=== PATIENT | female | born 1975 | race Caucasian/White ===

== ENCOUNTER 2020-01-25 18:11 | Emergency (ER) | payer BC ==
[2020-01-25 18:36] VITALS: RESP 18; TEMP 98.8
[2020-01-25] MEDS ORDERED: HYDROmorphone 1 MG/ML 1 ML SYRINGE IVP STA ×2 (18:42→20:16)
[2020-01-25] MEDS ORDERED: ONDANSETRON 4 MG/2 ML VIAL IVP STA (18:42)
[2020-01-25] MEDS ORDERED: LORazepam 2 MG/ML INJ IV STA (19:45)
--- NOTE | 2020-01-25 19:45 | XR ---
EXAMINATION TYPE: XR shoulder complete RT DATE OF EXAM: 01/25/2020 COMPARISON: NONE HISTORY: Pain TECHNIQUE: 3 views FINDINGS: There is nondisplaced chip fracture of the greater tuberosity of the humerus. There is no d islocation. Scapula is intact. IMPRESSION: Nondisplaced greater tuberosity chip fracture.
--- NOTE | 2020-01-25 19:46 | XR ---
EXAMINATION TYPE: XR humerus RT DATE OF EXAM: 01/25/2020 COMPARISON: NONE HISTORY: Pain TECHNIQUE: 2 views FINDINGS: Elbow joint appears intact. No displaced fracture seen. There is no dislocation at the shou lder joint. IMPRESSION: No displaced fracture seen.
--- NOTE | 2020-01-25 19:47 | XR ---
EXAMINATION TYPE: XR wrist complete RT DATE OF EXAM: 01/25/2020 COMPARISON: NONE HISTORY: Pain TECHNIQUE: 4 views FINDINGS: I see no fracture nor dislocation. Joint spaces are normal. Metacarpals are intact. There a re no erosions. IMPRESSION: Negative right wrist exam.
[2020-01-25 20:10] VITALS: BP 171/86; PULSE 73
--- NOTE | 2020-01-25 20:38 | ED ---
Fall HPI - General Chief Complaint: Fall Stated Complaint: Fall, R Arm injury Time Seen by Provider: 01/25/20 18:15 Source: patient Mode of arrival: ambulatory - History of Present Illness Initial Comments: Patient is a 44 year old female with past medical history of alcohol abuse who presents to the emergency department with reported right shoulder pain. She states that she was walking down the stairs with a roll of carpet when she tripped and fell onto her right shoulder. He denies hitting her head or losing consciousness. He is complaining of pain in her right shoulder and wrist. Patient is right-hand dominant. Denies any numbness or tingling into her hand. She was given mcgs of fentanyl prior to hospital arrival. Does arrive in admits that she is an alcoholic. States her last drink was last night. No other alleviating, precipitating or modifying factors - Related Data Home Medications Medication Instructions Recorded Confirmed Albuterol Inhaler [Ventolin Hfa 2 puff INHALATION RT-TID PRN 01/25/20 01/25/20 Inhaler] Escitalopram [Lexapro] 10 mg PO DAILY 01/25/20 01/25/20 Lansoprazole [Prevacid] 30 mg PO DAILY 01/25/20 01/25/20 Metoprolol Succinate [Toprol XL] 100 mg PO BID 01/25/20 01/25/20 Previous Rx's Medication Instructions Recorded HYDROcodone/APAP 7.5-325MG [[place] 1 tab PO Q4HR PRN 3 Days #18 tab 01/25/20 7.5-325] LORazepam [Ativan] 0.5 mg PO TID 3 Days #9 tab 01/25/20 Allergies Allergy/AdvReac Type Severity Reaction Status Date / Time Iodinated Contrast Media Allergy Rash/Hives Verified 01/25/20 19:23 Review of Systems ROS Statement: Those systems with pertinent positive or pertinent negative responses have been documented in the HPI. ROS Other: All systems not noted in ROS Statement are negative. 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 Absent: scleral icterus, conjunctival injection, periorbital swelling ENT exam: Present: normal exam, mucous membranes moist Neck exam: Present: normal inspection. Absent: tenderness, meningismus, lymphadenopathy Respiratory exam: Present: normal lung sounds bilaterally. Absent: respiratory distress, wheezes, rales, rhonchi, stridor Cardiovascular Exam: Present: regular rate, normal rhythm, normal heart sounds. Absent: systolic murmur, diastolic murmur, rubs, gallop, clicks GI/Abdominal exam: Present: soft, normal bowel sounds. Absent: distended, tenderness, guarding, rebound, rigid Extremities exam: Present: tenderness (tenderness to palpation at the right humeral head. Difficulty with abduction and flexion due to pain. Equal exploitation analyst strength. Intact wrist extension and flexion. Tenderness to palpation of distal radius and ulna. ), normal capillary refill. Absent: pedal edema, joint swelling, calf tenderness Back exam: Present: normal inspection Neurological exam: Present: alert, oriented X3, CN II-XII intact Psychiatric exam: Present: normal affect, normal mood Skin exam: Present: warm, dry, intact, normal color. Absent: rash Course Vital Signs 01/25/20 01/25/20 18:14 20:09 Temperature 98.8 F Pulse Rate 74 73 Respiratory 18 18 Rate Blood Pressure 178/109 171/86 O2 Sat by Pulse 96 98 Oximetry Procedures - Orthopedic Splinting/Casting Injury #1 Side: right Upper Extremity Injury Location: wrist Upper Extremity Immobilizer: thumb spica, synthetic pre-padded splint Medical Decision Making - Medical Decision Making Upon arrival patient is placed in room 18. A thorough physical exam was performed. First IV is established. Patient was given additional pain medications and nausea medications. X-rays performed of the patient's right shoulder and right wrist. Imaging does reveal a chip fracture of the patient's greater tuberosity. Patient placed in a sling. Wrist is placed in a thumb spica splint. Patient is given orthopedic follow-up. Patient is concerned about being on Gustavus and unable drink alcohol. I did give her a few tablets of Ativan. She is instructed that she must separate the Gustavus and Ativan. Significant other is at bedside and understands this. They're to be by approximately 3 hours time. If the pain medications or and are not needed the patient should not take them. Do not mix either with alcohol. The patient has worsening withdrawal symptoms she should return to the emergency room. She understands this. Patient was discharged in stable condition Disposition Clinical Impression: Fall, Right humeral fracture, Right wrist pain Disposition: ADMITTED IP TO THIS [facility] Condition: Stable Instructions (If sedation given, give patient instructions): Proximal Humerus Fracture (ED) Additional Instructions: Follow-up with orthopedic doctor. Keep your arm in the wrist splint. Do not get it wet. Rest, ice and elevate your wrist. Wear the sling for comfort. Separate taking the Ativan and Gustavus. Return to the ED for any new or worsening symptoms. Prescriptions: LORazepam [Ativan] 0.5 mg PO TID 3 Days #9 tab HYDROcodone/APAP 7.5-325MG [G[place]av[place] 7.5-325] 1 tab PO Q4HR PRN 3 Days #18 tab PRN Reason: Pain Is patient prescribed a controlled substance at d/c from ED?: Yes When asked, does pt state using other controlled substances?: No If prescribed controlled substance>3 days was MAPS reviewed?: Prescribed <3 Days If opioid is for acute pain is fill amount 7 days or less?: Yes If Rx opioid, was Start Talking consent form obtained?: Yes Referrals: Nonstaff,Physician [Primary Care Provider] - 1-2 days Joon Francisco DO [Medical Doctor] - 1-2 days Time of Disposition: 20:35
== END 2020-01-25 21:00 | disposition other institution (70) ==
LOC: EC 18:11
DX: S42.251A Displaced fracture of greater tuberosity of right humerus, initial encounter for closed fracture (principal); M25.531 Pain in right wrist; I10 Essential (primary) hypertension; K21.9 Gastro-esophageal reflux disease without esophagitis; F32.9 Major depressive disorder, single episode, unspecified; F17.200 Nicotine dependence, unspecified, uncomplicated; Z79.899 Other long term (current) drug therapy; Z91.041 Radiographic dye allergy status; W10.9XXA Fall (on) (from) unspecified stairs and steps, initial encounter; Y93.01 Activity, walking, marching and hiking
CPT/HCPCS: 99284; 29125; 96374; 96375 ×2; 73030; 73060; 73110; J2060; J2405; J1170

== ENCOUNTER 2020-04-17 14:23 | Emergency (ER) | payer OTHER ==
[2020-04-17 14:29] VITALS: BP 180/91; PULSE 77; RESP 18; TEMP 97.9
[2020-04-17] MEDS ORDERED: LIDOCAINE 1%-EPI 1:100,000 20 ML VIAL SQ STA (14:38)
--- NOTE | 2020-04-17 14:45 | ED ---
Skin/Abscess/FB HPI - General Chief complaint: Skin/Abscess/Foreign Body Stated complaint: Abscess/Rash Time Seen by Provider: 04/17/20 14:33 Source: patient Mode of arrival: ambulatory Limitations: no limitations - History of Present Illness Initial comments: 44-year-old female presenting to emergency Department with a chief complaint of an abscess in the forehead. 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 States she typically is treated with oral antibiotics and has been seen at other emergency departments. Patient states now she has developed a small lesion on her forehead the past 3 days. Patient reports applying topical antibiotic ointment and peroxide with no significant improvement in symptoms. She denies any significant erythema or swelling. Denies any night sweats fevers or chills. - Related Data Home Medications Medication Instructions Recorded Confirmed Albuterol Inhaler [Ventolin Hfa 2 puff INHALATION RT-TID PRN 01/25/20 01/25/20 Inhaler] Escitalopram [Lexapro] 10 mg PO DAILY 01/25/20 01/25/20 Lansoprazole [Prevacid] 30 mg PO DAILY 01/25/20 01/25/20 Metoprolol Succinate [Toprol XL] 100 mg PO BID 01/25/20 01/25/20 Previous Rx's Medication Instructions Recorded HYDROcodone/APAP 7.5-325MG [[place] 1 tab PO Q4HR PRN 3 Days #18 tab 01/25/20 7.5-325] LORazepam [Ativan] 0.5 mg PO TID 3 Days #9 tab 01/25/20 Sulfamethox-Tmp 800-160Mg [Bactrim 1 each PO Q12HR #20 tab 04/17/20 Ds] Allergies Allergy/AdvReac Type Severity Reaction Status Date / Time Iodinated Contrast Media Allergy Rash/Hives Verified 04/17/20 14:27 Review of Systems ROS Statement: Those systems with pertinent positive or pertinent negative responses have been documented in the HPI. ROS Other: All systems not noted in ROS Statement are negative. 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 Absent: normal inspection (Small lesion measuring approximately 5 mm and indurated. No surrounding cellulitic skin changes. It is tender to touch.) Eye exam: Present: normal appearance, PERRL, EOMI Pupils: Present: normal accommodation ENT exam: Present: normal exam, normal oropharynx, mucous membranes moist, TM's normal bilaterally, normal external ear exam Neck exam: Present: normal inspection, full ROM. Absent: tenderness Respiratory exam: Present: normal lung sounds bilaterally. Absent: respiratory distress, wheezes, rales Cardiovascular Exam: Present: regular rate, normal rhythm, normal heart sounds Extremities exam: Present: normal inspection, full ROM, normal capillary refill. Absent: tenderness, pedal edema, joint swelling Back exam: Present: normal inspection, full ROM. Absent: tenderness, CVA tenderness (R), CVA tenderness (L) Neurological exam: Present: alert, oriented X3, normal gait Psychiatric exam: Present: normal affect, normal mood Skin exam: Present: warm, dry, intact, normal color Course Vital Signs 04/17/20 14:25 Temperature 97.9 F Pulse Rate 77 Respiratory 18 Rate Blood Pressure 180/91 O2 Sat by Pulse 100 Oximetry Medical Decision Making - Medical Decision Making 44 red female presenting to emergency Department with a chief complaint of an abscess on the forehead. On physical examination, patient has a small lesion on the forehead measuring about 5 mm and it is indurated. No overlying cellulitic skin changes. It is tender to touch. No incision and drainage will be performed at this time. She will be started on Bactrim which always works for her according to the patient. We'll cover for MRSA. Return parameters thoroughly discussed the patient is an ascending agreeable. Case discussed with physician. Disposition Clinical Impression: Abscess Disposition: HOME SELF-CARE Condition: Stable Instructions (If sedation given, give patient instructions): Abscess (ED) Additional Instructions: Take prescribed medication and apply warm compresses. Follow-up with primary care physician. Prescriptions: Sulfamethox-Tmp 800-160Mg [Bactrim Ds] 1 each PO Q12HR #20 tab Is patient prescribed a controlled substance at d/c from ED?: No Referrals: Nonstaff,Physician [Primary Care Provider] - 1-2 days Time of Disposition: 14:58
[2020-04-17] MEDS ORDERED: SULFAMETHOX-TMP 800-160MG 1 EACH TAB PO STA (14:54)
== END 2020-04-17 15:20 | disposition home or self-care (01) ==
LOC: EC 14:23
DX: L02.01 Cutaneous abscess of face (principal); I10 Essential (primary) hypertension; K21.9 Gastro-esophageal reflux disease without esophagitis; F32.9 Major depressive disorder, single episode, unspecified; F17.200 Nicotine dependence, unspecified, uncomplicated; Z79.899 Other long term (current) drug therapy; Z91.041 Radiographic dye allergy status; Z86.14 Personal history of Methicillin resistant Staphylococcus aureus infection
CPT/HCPCS: 99283

== ENCOUNTER 2020-05-19 11:57 | Emergency (ER) | payer OTHER ==
[2020-05-19 12:07] VITALS: RESP 18; TEMP 98.6
--- NOTE | 2020-05-19 12:36 | ED ---
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 patient states that she has had pain in her hands as well as her feet for quite some time. Patient states that she has a bump on her left hand. Patient states that what brought her into the emergency department today however was her bilateral feet pain she's nose that they appear swollen. Child states the pain is up to her thighs. Patient states she woke up this morning and has slight right shoulder pain she states she has had previous injury to this shoulder but states it hurts when she takes a deep breath. Patient denies hemoptysis unilateral leg swelling she denies chest pressure jaw pain. Patient denies cough, fevers. Patient denies additional complaints. (Gris Benton) - Related Data Home Medications Medication Instructions Recorded Confirmed Escitalopram [Lexapro] 10 mg PO DAILY 01/25/20 05/19/20 Lansoprazole [Prevacid] 30 mg PO DAILY 01/25/20 05/19/20 Metoprolol Succinate [Toprol XL] 100 mg PO BID 01/25/20 05/19/20 Allergies Allergy/AdvReac Type Severity Reaction Status Date / Time Iodinated Contrast Media Allergy Rash/Hives Verified 05/19/20 12:47 Review of Systems ROS Other: All systems not noted in ROS Statement are negative. <Gris Benton - Last Filed: 05/19/20 13:56> ROS Other: All systems not noted in ROS Statement are negative. <Elmira Arguello - Last Filed: 05/19/20 16:48> ROS Statement: Those systems with pertinent positive or pertinent negative responses have been documented in the HPI. 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 Past Psychological History: Depression Smoking Status: Current every day smoker Past Alcohol Use History: Daily Past Drug Use History: Marijuana <Gris Benton - Last Filed: 05/19/20 13:56> General Exam Limitations: no limitations <Gris Benton - Last Filed: 05/19/20 13:56> Course Vital Signs 05/19/20 05/19/20 05/19/20 12:04 13:39 14:52 Temperature 98.6 F Pulse Rate 94 86 76 Respiratory 18 18 18 Rate Blood Pressure 176/108 144/97 176/105 O2 Sat by Pulse 98 97 98 Oximetry Medical Decision Making - Lab Data Result diagrams: 05/19/20 12:32 05/19/20 12:32 <Gris Benton - Last Filed: 05/19/20 13:56> - Lab Data Result diagrams: 05/19/20 12:32 05/19/20 12:32 <Elmira Arguello P - Last Filed: 05/19/20 16:48> - Lab Data Lab Results 05/19/20 05/19/20 05/19/20 Range/Units 12:32 12:32 12:32 WBC 10.1 (3.8-10.6) k/uL RBC 4.06 (3.80-5.40) m/uL Hgb 13.9 (11.4-16.0) gm/dL Hct 40.5 (34.0-46.0) % MCV 99.9 (80.0-100.0) fL MCH 34.4 (25.0-35.0) pg MCHC 34.4 (31.0-37.0) g/dL RDW 12.5 (11.5-15.5) % Plt Count 240 (150-450) k/uL MPV 8.4 Neutrophils % 73 % Lymphocytes % 16 % Monocytes % 6 % Eosinophils % 2 % Basophils % 1 % Neutrophils # 7.3 (1.3-7.7) k/uL Lymphocytes # 1.6 (1.0-4.8) k/uL Monocytes # 0.6 (0-1.0) k/uL Eosinophils # 0.2 (0-0.7) k/uL Basophils # 0.1 (0-0.2) k/uL PT 9.6 (9.0-12.0) sec INR 0.9 (<1.2) APTT 22.6 (22.0-30.0) sec Sodium 137 (137-145) mmol/L Potassium 5.4 H (3.5-5.1) mmol/L Chloride 103 (98-107) mmol/L Carbon Dioxide 25 (22-30) mmol/L Anion Gap 9 mmol/L BUN 15 (7-17) mg/dL Creatinine 0.76 (0.52-1.04) mg/dL Est GFR (CKD-EPI)AfAm >90 (>60 ml/min/1.73 sqM) Est GFR (CKD-EPI)NonAf >90 (>60 ml/min/1.73 sqM) Glucose 107 H (74-99) mg/dL Calcium 9.1 (8.4-10.2) mg/dL Magnesium 1.9 (1.6-2.3) mg/dL Total Bilirubin 0.8 (0.2-1.3) mg/dL AST 86 H (14-36) U/L ALT 42 H (4-34) U/L Alkaline Phosphatase 96 (38-126) U/L Troponin I (0.000-0.034) ng/mL NT-Pro-B Natriuret Pep pg/mL Total Protein 7.6 (6.3-8.2) g/dL Albumin 4.3 (3.5-5.0) g/dL Urine HCG, Qual (Not Detectd) Coronavirus (PCR) (Not Detectd) 05/19/20 05/19/20 05/19/20 Range/Units 12:32 12:32 12:36 WBC (3.8-10.6) k/uL RBC (3.80-5.40) m/uL Hgb (11.4-16.0) gm/dL Hct (34.0-46.0) % MCV (80.0-100.0) fL MCH (25.0-35.0) pg MCHC (31.0-37.0) g/dL RDW (11.5-15.5) % Plt Count (150-450) k/uL MPV Neutrophils % % Lymphocytes % % Monocytes % % Eosinophils % % Basophils % % Neutrophils # (1.3-7.7) k/uL Lymphocytes # (1.0-4.8) k/uL Monocytes # (0-1.0) k/uL Eosinophils # (0-0.7) k/uL Basophils # (0-0.2) k/uL PT (9.0-12.0) sec INR (<1.2) APTT (22.0-30.0) sec Sodium (137-145) mmol/L Potassium (3.5-5.1) mmol/L Chloride (98-107) mmol/L Carbon Dioxide (22-30) mmol/L Anion Gap mmol/L BUN (7-17) mg/dL Creatinine (0.52-1.04) mg/dL Est GFR (CKD-EPI)AfAm (>60 ml/min/1.73 sqM) Est GFR (CKD-EPI)NonAf (>60 ml/min/1.73 sqM) Glucose (74-99) mg/dL Calcium (8.4-10.2) mg/dL Magnesium (1.6-2.3) mg/dL Total Bilirubin (0.2-1.3) mg/dL AST (14-36) U/L ALT (4-34) U/L Alkaline Phosphatase (38-126) U/L Troponin I <0.012 (0.000-0.034) ng/mL NT-Pro-B Natriuret Pep 230 pg/mL Total Protein (6.3-8.2) g/dL Albumin (3.5-5.0) g/dL Urine HCG, Qual Not Detected (Not Detectd) Coronavirus (PCR) (Not Detectd) 05/19/20 Range/Units 13:56 WBC (3.8-10.6) k/uL RBC (3.80-5.40) m/uL Hgb (11.4-16.0) gm/dL Hct (34.0-46.0) % MCV (80.0-100.0) fL MCH (25.0-35.0) pg MCHC (31.0-37.0) g/dL RDW (11.5-15.5) % Plt Count (150-450) k/uL MPV Neutrophils % % Lymphocytes % % Monocytes % % Eosinophils % % Basophils % % Neutrophils # (1.3-7.7) k/uL Lymphocytes # (1.0-4.8) k/uL Monocytes # (0-1.0) k/uL Eosinophils # (0-0.7) k/uL Basophils # (0-0.2) k/uL PT (9.0-12.0) sec INR (<1.2) APTT (22.0-30.0) sec Sodium (137-145) mmol/L Potassium (3.5-5.1) mmol/L Chloride (98-107) mmol/L Carbon Dioxide (22-30) mmol/L Anion Gap mmol/L BUN (7-17) mg/dL Creatinine (0.52-1.04) mg/dL Est GFR (CKD-EPI)AfAm (>60 ml/min/1.73 sqM) Est GFR (CKD-EPI)NonAf (>60 ml/min/1.73 sqM) Glucose (74-99) mg/dL Calcium (8.4-10.2) mg/dL Magnesium (1.6-2.3) mg/dL Total Bilirubin (0.2-1.3) mg/dL AST (14-36) U/L ALT (4-34) U/L Alkaline Phosphatase (38-126) U/L Troponin I (0.000-0.034) ng/mL NT-Pro-B Natriuret Pep pg/mL Total Protein (6.3-8.2) g/dL Albumin (3.5-5.0) g/dL Urine HCG, Qual (Not Detectd) Coronavirus (PCR) Not Detected (Not Detectd) Disposition <Gris Benton L - Last Filed: 05/19/20 13:56> Is patient prescribed a controlled substance at d/c from ED?: No <Elmira Arguello P - Last Filed: 05/19/20 16:48> Clinical Impression: Lower extremity edema Disposition: HOME SELF-CARE Condition: Stable Instructions (If sedation given, give patient instructions): Leg Edema (ED) Referrals: Nonstaff,Physician [Primary Care Provider] - 1-2 days
[2020-05-19 12:46] LABS: Basophils # (A) 0.1 k/uL (0-0.2); Basophils % (A) 1 %; Eosinophils # (A) 0.2 k/uL (0-0.7); Eosinophils % (A) 2 %; HCT 40.5 % (34.0-46.0); HGB 13.9 gm/dL (11.4-16.0); Lymphocytes # (A) 1.6 k/uL (1.0-4.8); Lymphocytes % (A) 16 %; MCH 34.4 pg (25.0-35.0); MCHC 34.4 g/dL (31.0-37.0); MCV 99.9 fL (80.0-100.0); Mean Platelet Volume 8.4; Monocytes # (A) 0.6 k/uL (0-1.0); Monocytes % (A) 6 %; Neutrophils # (A) 7.3 k/uL (1.3-7.7); Neutrophils % (A) 73 %; Platelet Count 240 k/uL (150-450); RBC 4.06 m/uL (3.80-5.40); RDW 12.5 % (11.5-15.5); WBC 10.1 k/uL (3.8-10.6)
[2020-05-19 12:54] LABS: INR 0.9 (<1.2); Partial Thromboplastin Time 22.6 sec (22.0-30.0); Prothrombin Time 9.6 sec (9.0-12.0)
[2020-05-19 12:58] LABS: ALT 42 U/L (4-34); African American GFR (CKD) >90 (>60 ml/min/1.73 sqM); Albumin 4.3 g/dL (3.5-5.0); Anion Gap 9 mmol/L; Blood Urea Nitrogen 15 mg/dL (7-17); Calcium 9.1 mg/dL (8.4-10.2); Carbon Dioxide 25 mmol/L (22-30); Chloride 103 mmol/L (98-107); Glucose 107 mg/dL (74-99); Non-African American GFR(CKD) >90 (>60 ml/min/1.73 sqM); Sodium 137 mmol/L (137-145); Total Bilirubin 0.8 mg/dL (0.2-1.3); Total Protein 7.6 g/dL (6.3-8.2)
[2020-05-19 13:04] LABS: AST 86 U/L (14-36); Alkaline Phosphatase 96 U/L (38-126); Magnesium 1.9 mg/dL (1.6-2.3); Potassium 5.4 mmol/L (3.5-5.1)
--- NOTE | 2020-05-19 13:05 | XR ---
EXAMINATION TYPE: XR chest 2V DATE OF EXAM: 05/19/2020 COMPARISON: NONE HISTORY: Chest pain TECHNIQUE: Frontal and lateral views of the chest are obtained. FINDINGS: There is no focal air space opacity. No evidence for pneumothorax. No pleural effusion. The cardiac silhouette size is within normal limits. The osseous structures are grossly intact. IMPRESSION: 1. No acute cardiopulmonary process.
[2020-05-19] MEDS ORDERED: diphenhydrAMINE 50 MG/ML 1 ML VIAL IVP STA (13:29)
[2020-05-19] MEDS ORDERED: methylPREDNISolone SOD SUCCI 125 MG/2 ML VIAL IV STA (13:29)
[2020-05-19] MEDS ORDERED: FAMOTIDINE 20 MG/2 ML VIAL IV STA (13:29)
[2020-05-19] MEDS ORDERED: CEPHALEXIN 500MG STARTER PACK 4 CAP BTL PO STA (13:31)
[2020-05-19] MEDS ORDERED: SULFAMETH-TMP DS STARTER PACK 2 TAB BTL PO STA (13:32)
--- NOTE | 2020-05-19 13:37 | US ---
EXAMINATION TYPE: US venous doppler duplex LE DATE OF EXAM: 05/19/2020 12:37 PM COMPARISON: NONE CLINICAL HISTORY: factor 5 b/l leg pain/swelling. Pain and swelling SIDE PERFORMED: Bilateral TECHNIQUE: The lower extremity deep venous system is examined utilizing real time linear array sonog terrell with graded compression, doppler sonography and color-flow sonography. VESSELS IMAGED: Common Femoral Vein Deep Femoral Vein Greater Saphenous Vein * Femoral Vein Popliteal Vein Small Saphenous Vein * Proximal Calf Veins (* superficial vessels) Right Leg: Negative for DVT Left Leg: Negative for DVT IMPRESSION: No evidence for DVT.
[2020-05-19] MEDS ORDERED: LORazepam 2 MG/ML INJ IV PRN ×3 (13:58)
[2020-05-19] MEDS ORDERED: THIAMINE 100 MG/ML 2 ML VIAL IM STA (13:58)
--- NOTE | 2020-05-19 16:38 | NM ---
EXAMINATION TYPE: NM pul vent and perfuse DATE OF EXAM: 05/19/2020 COMPARISON: NONE HISTORY: TECHNIQUE: Utilizing inhalation of 38 mCi Tc 99m DTPA aerosol and intravenous injection of 4.8 mCi o f Tc 99m MAA, ventilation and perfusion images are acquired post injection in multiple projections. FINDINGS: There is uniform fairly normal perfusion of upper and lower lobes bilaterally. Ventilation scan is fa irly normal. There is no segmental or subsegmental defect. IMPRESSION: Normal lung scan. There is very low probability of pulmonary embolism.
[2020-05-19 17:26] VITALS: BP 156/95; PULSE 83
[2020-05-19] MEDS ORDERED: THIAMINE 100 MG TAB PO SCH (17:30)
== END 2020-05-19 17:26 | disposition home or self-care (01) ==
LOC: EC 11:57
DX: R60.0 Localized edema (principal); R21 Rash and other nonspecific skin eruption; R06.02 Shortness of breath; M25.511 Pain in right shoulder; K21.9 Gastro-esophageal reflux disease without esophagitis; I10 Essential (primary) hypertension; F32.9 Major depressive disorder, single episode, unspecified; F17.200 Nicotine dependence, unspecified, uncomplicated; Z20.822 Contact with and (suspected) exposure to COVID-19; Z79.899 Other long term (current) drug therapy; Z90.49 Acquired absence of other specified parts of digestive tract; Z90.710 Acquired absence of both cervix and uterus; Z86.14 Personal history of Methicillin resistant Staphylococcus aureus infection; Z91.041 Radiographic dye allergy status
CPT/HCPCS: 36415; 93005; 83880; 80053; 83735; 84484; 85025; 85610; 85730; 81025; 87635; 71046; 93970; 78582; 99284; 96374; A9540; A9567; J2060

== ENCOUNTER 2021-09-13 15:53 | Observation (INO) | payer OTHER ==
--- NOTE | 2021-09-13 16:19 | ED ---
Chest Pain HPI - General Chief Complaint: Chest Pain Stated Complaint: chest pain Time Seen by Provider: 09/13/21 16:07 Source: patient, RN notes reviewed Mode of arrival: wheelchair Limitations: no limitations - History of Present Illness Initial Comments: 45-year-old female history of pacemaker and A. fib in the past who presents with complaints of the onset around 2 PM today of chest pain is squeezing in nature moderate in severity with a cough she currently has no symptoms right now he does state she also had associated lightheadedness and dizziness with it. No fevers chills nausea vomiting sweats at this time no new medications no drugs reported she does states she drinks about a sixpack of beer every day. No other current complaints modifying factors MD Complaint: chest pain, other - Related Data Home Medications Medication Instructions Recorded Confirmed Escitalopram [Lexapro] 10 mg PO DAILY 01/25/20 09/13/21 Lansoprazole [Prevacid] 30 mg PO DAILY 01/25/20 09/13/21 Lisinopril-Hctz 10-12.5 mg 1 tab PO DAILY 09/13/21 09/13/21 [Zestoretic 10-12.5] Previous Rx's Medication Instructions Recorded Metoprolol Succinate (ER) [Toprol 50 mg PO DAILY #30 04/01/21 XL] Allergies Allergy/AdvReac Type Severity Reaction Status Date / Time Iodinated Contrast Media Allergy Rash/Hives Verified 09/13/21 16:37 Review of Systems ROS Statement: Those systems with pertinent positive or pertinent negative responses have been documented in the HPI. ROS Other: All systems not noted in ROS Statement are negative. 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 Absent: scleral icterus, conjunctival injection, periorbital swelling ENT exam: Present: normal exam, mucous membranes moist Neck exam: Present: normal inspection, full ROM, other (No stridor JVD or bruits). Absent: tenderness, meningismus, lymphadenopathy Respiratory exam: Present: normal lung sounds bilaterally. Absent: respiratory distress, wheezes, rales, rhonchi, stridor Cardiovascular Exam: Present: regular rate, normal rhythm, normal heart sounds. Absent: systolic murmur, diastolic murmur, rubs, gallop, clicks GI/Abdominal exam: Present: soft, normal bowel sounds. Absent: distended, tenderness, guarding, rebound, rigid, bruit, pulsatile mass Extremities exam: Present: normal inspection, full ROM, normal capillary refill. Absent: tenderness, pedal edema, joint swelling, calf tenderness Back exam: Present: normal inspection Neurological exam: Present: alert, oriented X3, CN II-XII intact Psychiatric exam: Present: normal affect, normal mood Skin exam: Present: warm, dry, intact, normal color. Absent: rash Course Vital Signs 09/13/21 09/13/21 09/13/21 15:55 16:11 17:49 Temperature 98.2 F Pulse Rate 65 59 L 60 Respiratory 16 18 18 Rate Blood Pressure 197/91 193/104 197/111 O2 Sat by Pulse 98 100 99 Oximetry Chest Pain MDM - MDM Patient reviewed no acute findings I did discuss findings the patient family patient be admitted for evaluation by cardiology at did discuss the case with Dr. Farrar Disposition Clinical Impression: Heart palpitations, Chest pain, Elevated d-dimer Disposition: ADMITTED IP TO THIS HOSP Condition: Stable Referrals: Vick Mcdaniel MD [Primary Care Provider] - 1-2 days Decision Date: 09/13/21 Decision Time: 18:45
[2021-09-13 16:33] LABS: Basophils # (A) 0.1 k/uL (0-0.2); Basophils % (A) 1 %; Eosinophils # (A) 0.2 k/uL (0-0.7); Eosinophils % (A) 2 %; HCT 46.1 % (34.0-46.0); HGB 15.8 gm/dL (11.4-16.0); Lymphocytes # (A) 1.9 k/uL (1.0-4.8); Lymphocytes % (A) 20 %; MCH 33.7 pg (25.0-35.0); MCHC 34.2 g/dL (31.0-37.0); MCV 98.6 fL (80.0-100.0); Mean Platelet Volume 10.6; Monocytes # (A) 0.5 k/uL (0-1.0); Monocytes % (A) 5 %; Neutrophils # (A) 6.4 k/uL (1.3-7.7); Neutrophils % (A) 69 %; Platelet Count 234 k/uL (150-450); RBC 4.67 m/uL (3.80-5.40); RDW 13.2 % (11.5-15.5); WBC 9.3 k/uL (3.8-10.6)
--- NOTE | 2021-09-13 16:44 | XR ---
EXAMINATION TYPE: XR chest 2V DATE OF EXAM: 09/13/2021 COMPARISON: 04/01/2021 HISTORY: Chest TECHNIQUE: FINDINGS: Heart is normal. Lungs are clear. Diaphragm is normal. Bony thorax is intact. There is left axillary pacemaker. There is no pleural effusion. Bony thorax is intact. IMPRESSION: No active cardiopulmonary disease. Normal heart. No change.
[2021-09-13 16:46] LABS: ALT 28 U/L (4-34); AST 49 U/L (14-36); African American GFR (CKD) 87 (>60 ml/min/1.73 sqM); Albumin 4.9 g/dL (3.5-5.0); Alcohol <10 mg/dL; Alkaline Phosphatase 124 U/L (38-126); Anion Gap 8 mmol/L; Blood Urea Nitrogen 19 mg/dL (7-17); Calcium 9.4 mg/dL (8.4-10.2); Carbon Dioxide 24 mmol/L (22-30); Chloride 107 mmol/L (98-107); Glucose 99 mg/dL (74-99); Lipase 275 U/L (23-300); Magnesium 1.9 mg/dL (1.6-2.3); Non-African American GFR(CKD) 75 (>60 ml/min/1.73 sqM); Sodium 139 mmol/L (137-145); Total Bilirubin 0.6 mg/dL (0.2-1.3); Total Protein 8.5 g/dL (6.3-8.2)
[2021-09-13 16:47] LABS: Potassium 4.5 mmol/L (3.5-5.1)
[2021-09-13 17:10] LABS: INR 0.9 (<1.2); Partial Thromboplastin Time 24.7 sec (22.0-30.0); Prothrombin Time 9.8 sec (9.0-12.0)
[2021-09-13] MEDS ORDERED: NITROGLYCERIN SL TABS 0.4 MG TAB SUBLINGUAL PRN (18:57)
[2021-09-13] MEDS ORDERED: SODIUM CHLORIDE 0.9% 1,000 ML IV SCH (19:00)
[2021-09-13] MEDS ORDERED: hydrALAZINE HCL 25 MG TAB PO STA (20:25)
[2021-09-13] MEDS ORDERED: MELATONIN 5 MG TABLET PO SCH (21:00)
[2021-09-13] MEDS ORDERED: THIAMINE 100 MG/ML 2 ML VIAL IM STA (23:28)
[2021-09-13] MEDS ORDERED: LORazepam 2 MG/ML INJ IV PRN ×3 (23:28)
--- NOTE | 2021-09-13 23:28 | P.HPIM ---
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 The patient reports that her discomfort started earlier today at around 2 PM, substernal, pressure-like, intermittent, occurring 2-3 times an hour, lasting for about 10 seconds, with associated palpitations and mild diaphoresis. Reports that the discomfort is similar to when she was informed she had her third degree heart block. She denies associated shortness of breath, nausea, dizziness. Denied experiencing fever, chills, cough, abdominal pain, diarrhea. EKG in emergency room revealed a paced rhythm at 60 bpm with no acute ST/T-wave changes noted as reviewed by me. Chest x-ray was unremarkable. Laboratory evaluation was remarkable for troponin of 0.015 and proBNP to 63 with serum alcohol level less than 10. Patient reports drinking 8-10 beers daily for the past several years. Reports a prior history of significantly greater alcohol consumption with delirium tremens requiring ICU stay and Ativan infusion several years ago. Reports that her last drink was earlier today. Review of systems: Pertinent positives and negatives as discussed in HPI, a complete review of systems was performed and all other systems are negative. Physical examination: General: non toxic, no distress, appears at stated age, obese Derm: no unusual rashes/lesions, warm Head: atraumatic, normocephalic, symmetric Eyes: EOMI, no lid lag, anicteric sclera, pupils equal round reactive to light ENT: Nose and ears atraumatic Neck: No cervical lymphadenopathy, trachea midline, supple Mouth: no lip lesion, mucus membranes moist Cardiovascular: S1S2 reg, no murmur, positive dorsalis pedis pulse bilateral, no edema Lungs: CTA bilateral, no rhonchi, no rales, no accessory muscle use Abdominal: soft, nontender to palpation, no guarding Ext: muscle strength 5 out of 5 in all 4 extremities grossly, no gross muscle atrophy, no contractures, Neuro: CN II-XI grossly intact, no gross focal neuro deficits Psych: Alert, oriented, appropriate affect Assessment/plan Chest discomfort, rule out ACS -Cardiology consult -Cardiac monitoring -Trend troponin -Continue with aspirin, statin Alcohol abuse, impending withdrawal -[facility] protocol -Thiamine, multivitamin -Monitor electrolytes -IV fluids Chronic conditions: Hypertension, chronic anxiety -Continue with home meds DVT prophylaxis -Heparin subcu The patient is admitted with an anticipated less than 2 midnight stay for evaluation of chest pain CODE STATUS: Full Code Discussed with: Patient Anticipated discharge date: in am Anticipated discharge place: Home 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 Past Psychological History: Depression Smoking Status: Current every day smoker Past Alcohol Use History: Daily Past Drug Use History: Marijuana - Past Family History Mother Family Medical History: Liver Disease Medications and Allergies Home Medications Medication Instructions Recorded Confirmed Type Escitalopram [Lexapro] 10 mg PO DAILY 01/25/20 09/13/21 History Lansoprazole [Prevacid] 30 mg PO DAILY 01/25/20 09/13/21 History Metoprolol Succinate (ER) [Toprol 50 mg PO DAILY #30 04/01/21 09/13/21 Rx XL] Lisinopril-Hctz 10-12.5 mg 1 tab PO DAILY 09/13/21 09/13/21 History [Zestoretic 10-12.5] Allergies Allergy/AdvReac Type Severity Reaction Status Date / Time Iodinated Contrast Media Allergy Rash/Hives Verified 09/13/21 16:37 Physical Exam Vitals: Vital Signs Temp Pulse Pulse Resp BP BP Pulse Ox 09/13/21 22:27 155/95 09/13/21 21:06 63 18 09/13/21 20:02 97.6 F 60 16 176/108 97 09/13/21 19:34 98.1 F 60 18 149/86 99 09/13/21 17:49 60 18 197/111 99 09/13/21 16:11 59 L 18 193/104 100 09/13/21 15:55 98.2 F 65 16 197/91 98 Intake and Output 09/13/21 09/13/21 09/14/21 14:59 22:59 06:59 Other: Voiding Method Toilet # Voids 1 Weight 94.801 kg Results CBC & Chem 7: 09/13/21 16:20 09/13/21 16:20 Labs: Abnormal Lab Results - Last 24 Hours (Table) 09/13/21 09/13/21 09/13/21 Range/Units 16:20 16:20 16:20 Hct 46.1 H (34.0-46.0) % D-Dimer 0.77 H (<0.60) mg/L FEU BUN 19 H (7-17) mg/dL AST 49 H (14-36) U/L Total Protein 8.5 H (6.3-8.2) g/dL Thrombosis Risk Factor Assmnt - Choose All That Apply Any of the Below Risk Factors Present?: Yes Each Factor Represents 1 point: Age 41-60 years, Obesity (BMI >25) Each Risk Factor Represents 3 Points: Positive Factor V Leiden Other congenital or acquired thrombophilia - If yes, enter type in comment: No Thrombosis Risk Factor Assessment Total Risk Factor Score: 5 Thrombosis Risk Factor Assessment Level: High Risk
[2021-09-13] MEDS ORDERED: ATORVASTATIN 80 MG TAB PO SCH (23:30)
[2021-09-14] MEDS: THIAMINE 100 MG TAB PO SCH ×2 (00:11→08:24)
[2021-09-14] MEDS ORDERED: LABETALOL 200 MG TAB PO STA (01:47)
[2021-09-14 07:49] VITALS: RESP 12; TEMP 97.7
[2021-09-14] MEDS ORDERED: ESCITALOPRAM 10 MG TAB PO SCH (09:00)
[2021-09-14] MEDS ORDERED: LISINOPRIL-HCTZ 10-12.5 MG 1 EACH TAB PO SCH (09:00)
[2021-09-14] MEDS ORDERED: ASPIRIN 325 MG TAB PO SCH (09:00)
[2021-09-14] MEDS ORDERED: METOPROLOL SUCCINATE (ER) 50 MG TAB.ER.24H PO SCH (09:00)
[2021-09-14] MEDS ORDERED: PANTOPRAZOLE 40 MG TABLET PO SCH (09:00)
[2021-09-14 09:57] LABS: Chol/HDL Ratio 5.95 Ratio; LDL Cholesterol,Calculated 127.4 mg/dL (0.0-131.0)
[2021-09-14] MEDS ORDERED: METOPROLOL SUCCINATE (ER) 50 MG TAB.ER.24H PO STA (12:18)
[2021-09-14 12:32] VITALS: BP 136/86; PULSE 76
--- NOTE | 2021-09-14 13:01 | P.DS ---
Providers Date of admission: 09/13/21 18:59 Attending physician: Bridger Farrar MD Consults: 09/13/21 18:57 Consult Physician Urgent Consulting Provider: Tony Aguiar Consult Reason/Comments: Palpitations, chest pain Do you want consulting provider notified?: Yes Primary care physician: Vick Mcdaniel MD Hospital Course: Date of discharge: 09/14/21 Disposition: Discharge home; follow-up with primary care physician; patient was cleared by cardiology for discharge. Patient remained symptom free. Patient refuses VQ scan stating that she had 3 of them done recently for chronically elevated d-dimer and the role negative. Consultants: Cardiology Reason for admission the patient is a 45-year-old female with a PMH of third-degree heart block status post pacemaker placement 6 months ago, hypertension, EtOH abuse, chronic anxiety, who presents to the emergency room with complaints of chest discomfort. The patient reports that her discomfort started earlier today at around 2 PM, substernal, pressure-like, intermittent, occurring 2-3 times an hour, lasting for about 10 seconds, with associated palpitations and mild diaphoresis. Reports that the discomfort is similar to when she was informed she had her third degree heart block. She denies associated shortness of breath, nausea, dizziness. Denied experiencing fever, chills, cough, abdominal pain, diarrhea. EKG in emergency room revealed a paced rhythm at 60 bpm with no acute ST/T-wave changes noted as reviewed by me. Chest x-ray was unremarkable. Laboratory evaluation was remarkable for troponin of 0.015 and proBNP to 63 with serum alcohol level less than 10. Patient reports drinking 8-10 beers daily for the past several years. Reports a prior history of significantly greater alcohol consumption with delirium tremens requiring ICU stay and Ativan infusion several years ago. Reports that her last drink was earlier today. Hospital course Patient was admitted. She remained chest pain-free. Throughout her hospital stay. No respiratory complaints. No nausea no heartburn snow abdominal pain. Nexium troponin negative 2. EKG without acute changes. Chest x-ray without acute findings. On examination lungs clear to auscultation, cardiovascular regular rhythm and rate S1-S2 no murmurs, peripheral pulses present and symmetrical, no peripheral edema no calf tenderness; no abdominal pain. Patient was evaluated by cardiology. She is following with local cardiology group. They cleared the patient for discharge home with follow-up in their office and primary care physician. Patient also had elevated d-dimer, just minimally elevated. Patient is ALLERGIC to iodine. Patient was offered VQ scan. Patient refuses VQ scan as she stated that she has chronically elevated d-dimer and that she had multiple V/Q scans including 3 of them just in the last couple months including Doppler of the legs and nothing was ever found. Patient was discharged home to follow-up as above. Patient Condition at Discharge: Stable Plan - Discharge Summary Discharge Rx Participant: No New Discharge Prescriptions: Continue Lansoprazole [Prevacid] 30 mg PO DAILY Escitalopram [Lexapro] 10 mg PO DAILY Lisinopril-Hctz 10-12.5 mg [Zestoretic 10-12.5] 1 tab PO DAILY Metoprolol Succinate (ER) [Toprol XL] 50 mg PO DAILY #30 Discharge Medication List Escitalopram [Lexapro] 10 mg PO DAILY 01/25/20 [History] Lansoprazole [Prevacid] 30 mg PO DAILY 01/25/20 [History] Metoprolol Succinate (ER) [Toprol XL] 50 mg PO DAILY #30 04/01/21 [Rx] Lisinopril-Hctz 10-12.5 mg [Zestoretic 10-12.5] 1 tab PO DAILY 09/13/21 [History] Follow up Appointment(s)/Referral(s): Vick Mcdaniel MD [Primary Care Provider] - 1-2 days Discharge Disposition: HOME SELF-CARE
--- NOTE | 2021-09-14 14:37 | CONS ---
CONSULTATION CHIEF COMPLAINT: Palpitations and chest discomfort. Dea is a 45-year-old lady with history of hypertension, complete heart block, status post permanent pacemaker, who presented to hospital with palpitations and atypical chest pain. At the time of my evaluation she is comfortable at rest and is free of significant symptoms. Three sets of cardiac enzymes have been negative. Her EKG shows paced rhythm. Lipid profile shows that the lipids are poorly controlled. Her D-dimer is mildly elevated at 0.7. Admitting physician has decided not to investigate it any further. PAST MEDICAL HISTORY: Significant for hypertension, complete heart block, status post permanent pacemaker. MEDICATIONS: Medications include Toprol-XL 50 daily, Zestoretic, Prevacid and Lexapro. ALLERGIES: IV DYE. FAMILY HISTORY: Negative for premature coronary artery disease. SOCIAL HISTORY: Negative for current smoking, ETOH abuse or drug abuse. REVIEW OF SYSTEMS: HEENT is unremarkable. CARDIAC: As described above. RESPIRATORY: Negative. GI: Negative. GENITOURINARY: Negative. ALLERGY/IMMUNOLOGY: Negative. SKIN: Negative. MUSCULOSKELETAL: Negative. ENDOCRINE: Negative. DERMATOLOGY: Negative. CONSTITUTIONAL: Negative. ONCOLOGICAL: Negative. TRAIN STATION AGENT: Negative. Rest of the system review is not relevant. PHYSICAL EXAMINATION: Comfortable at rest. Blood pressures were elevated when she first came in. They are better controlled this morning. There is no jugular venous distention. Carotid upstroke is normal. There is no bruit. Chest exam reveals good air entry bilaterally. Heart exam reveals first and second heart sounds. No gallop. Examination of the extremities did not reveal any edema. LABS: Labs show a creatinine of 0.9, potassium is 4.5. Troponins are negative. Hemoglobin is 15.8. Total cholesterol is 237 with an LDL of 127. ASSESSMENT: 1. Uncontrolled hypertension. 2. Atypical chest pain and palpitations. PLAN: Patient is doing well. She does not have shortness of breath. I will increase the dose of Toprol to 100 mg daily. If necessary, will double the dose of lisinopril. Patient has history of heavy alcohol abuse and she is currently trying to cut down the same. Elevated D-dimer evaluation per primary. MMODL / IJN: [id number] /
== END 2021-09-14 13:33 | disposition home or self-care (01) ==
LOC: EC 15:53 → 6NMEDSUR 18:59
PROVIDERS: ADMIT Internal Medicine; ATTEND Internal Medicine
DX: R07.2 Precordial pain (principal); R00.2 Palpitations; R61 Generalized hyperhidrosis; I10 Essential (primary) hypertension; F41.9 Anxiety disorder, unspecified; I44.2 Atrioventricular block, complete; R05.9 Cough, unspecified; R79.89 Other specified abnormal findings of blood chemistry; F10.10 Alcohol abuse, uncomplicated; K21.9 Gastro-esophageal reflux disease without esophagitis; F32.A Depression, unspecified; E66.9 Obesity, unspecified; Z68.35 Body mass index [BMI] 35.0-35.9, adult; D68.51 Activated protein C resistance; I48.91 Unspecified atrial fibrillation; F17.200 Nicotine dependence, unspecified, uncomplicated; Z91.048 Other nonmedicinal substance allergy status; Z95.0 Presence of cardiac pacemaker; Z91.19 Patient's noncompliance with other medical treatment and regimen; Z86.14 Personal history of Methicillin resistant Staphylococcus aureus infection; Z90.49 Acquired absence of other specified parts of digestive tract; Z90.710 Acquired absence of both cervix and uterus; Z98.84 Bariatric surgery status; Z79.899 Other long term (current) drug therapy; Z83.79 Family history of other diseases of the digestive system
CPT/HCPCS: 96372; 99285; 36415; 94760; 93005; 85379 ×2; 83880; 80061; 80053; 83690; 83735; 84484 ×2; 85025; 85610; 85730; 80320; 71046; G0378 ×2; J3411

== ENCOUNTER 2022-07-05 01:13 | Emergency (ER) | payer OTHER ==
[2022-07-05 01:25] VITALS: BP 180/102; PULSE 95; RESP 14; TEMP 97.9
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
--- NOTE | 2022-07-05 02:17 | XR ---
EXAMINATION TYPE: XR chest 1V portable DATE OF EXAM: 07/05/2022 COMPARISON: NONE HISTORY: Pain TECHNIQUE: Single frontal view of the chest is obtained. FINDINGS: There is no focal air space opacity, pleural effusion, or pneumothorax seen. The cardiac silhouette size is within normal limits. The osseous structures are intact. Cardiac device noted. IMPRESSION: No acute process.
--- NOTE | 2022-07-05 02:18 | XR ---
EXAMINATION TYPE: XR pelvis AP view DATE OF EXAM: 07/05/2022 COMPARISON: NONE HISTORY: Pain The osseous structures are intact and the joint spaces are preserved. No acute fracture is seen. Vi sualized bowel gas pattern is nonspecific. IMPRESSION: 1. No acute fracture.
--- NOTE | 2022-07-05 02:19 | XR ---
EXAMINATION TYPE: XR foot limited RT DATE OF EXAM: 07/05/2022 COMPARISON: NONE HISTORY: Pain TECHNIQUE: Two views are submitted. FINDINGS: The osseous structures are intact. There is no acute fracture or dislocation. Joint spaces are p reserved. IMPRESSION: 1. No acute fracture or dislocation. If symptoms persist, follow-up exam in 7 to 10 days could be ob tained.
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
== END 2022-07-05 02:54 | disposition home or self-care (01) ==
LOC: EC 01:13
DX: S91.311A Laceration without foreign body, right foot, initial encounter (principal); I10 Essential (primary) hypertension; K21.9 Gastro-esophageal reflux disease without esophagitis; F32.A Depression, unspecified; F17.200 Nicotine dependence, unspecified, uncomplicated; F12.90 Cannabis use, unspecified, uncomplicated; Z79.899 Other long term (current) drug therapy; Z91.041 Radiographic dye allergy status; Y04.0XXA Assault by unarmed brawl or fight, initial encounter
CPT/HCPCS: 70450; 71045; 72125; 72170; 99285